=== PATIENT | female | born 1990 | race Caucasian/White ===

== ENCOUNTER 2022-07-15 16:49 | Emergency (ER) | payer OTHER, MEDICAID ==
[2022-07-15 17:05] VITALS: O2SAT 98
--- NOTE | 2022-07-15 17:11 | ERPHSYRPT ---
- History of Present Illness Time Seen by Provider: 07/15/22 17:11 Source: patient Exam Limitations: no limitations Physician History: This is a 31-year-old white female who works in the lab here at the hospital but presents to the emergency department with exposure of her left eye to urine that tested positive for chlamydia. She was not stuck with a needle and has no blood exposure. She denies visual changes. She became concerned only when the results of the urine came back positive for chlamydia. Patient has no known drug allergies. Nothing else is known about the patients medical history or infectious status. Timing/Duration: today Severity: mild Associated Symptoms: denies symptoms Allergies/Adverse Reactions: No Known Drug Allergies Allergy (Unverified 07/15/22 17:06) Home Medications: Medroxyprogesterone Acetate [Depo-Subq Provera 104] 104 mg SQ UD 07/15/22 [History] Travel Risk - International Travel Have you traveled outside of the country in past 3 weeks: No - Coronavirus Screening Are you exhibiting any of the following symptoms?: No Close contact with a COVID-19 positive Pt in past 14-21 Days: No - Review of Systems Constitutional: No Symptoms Eyes: No Symptoms Ears, Nose, & Throat: No Symptoms Respiratory: No Symptoms Cardiac: No Symptoms Abdominal/Gastrointestinal: No Symptoms Genitourinary Symptoms: No Symptoms Musculoskeletal: No Symptoms Skin: No Symptoms Neurological: No Symptoms Psychological: No Symptoms Endocrine: No Symptoms Hematologic/Lymphatic: No Symptoms Immunological/Allergic: No Symptoms All Other Systems: Reviewed and Negative - Past Medical History Pertinent Past Medical History: No - Past Surgical History Past Surgical History: Yes Musculoskeletal: Other Other Surgical History: bunion - Social History Drug Use: none - Nursing Vital Signs Nursing Vital Signs: Initial Vital Signs Temperature 97.0 F 07/15/22 17:04 Pulse Rate 89 07/15/22 17:04 Respiratory Rate 18 07/15/22 17:04 Blood Pressure 138/74 07/15/22 17:04 O2 Sat by Pulse Oximetry 98 07/15/22 17:04 Pain Scale Pain Intensity 0 - Physical Exam General Appearance: no apparent distress, alert, anxiety Eye Exam: PERRL/EOMI, eyes nml inspection Ears, Nose, Throat Exam: normal ENT inspection, moist mucous membranes Neck Exam: normal inspection, non-tender, supple, full range of motion Respiratory Exam: airway intact, No chest tenderness, No respiratory distress Gastrointestinal/Abdomen Exam: No tenderness Pelvic Exam: not done Rectal Exam: not done Back Exam: normal inspection, normal range of motion, No CVA tenderness, No vertebral tenderness Extremity Exam: normal inspection, normal range of motion, pelvis stable Neurologic Exam: alert, oriented x 3, cooperative, 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, normal mood/affect, nml cerebellar function, nml station & gait, sensation nml Skin Exam: normal color, warm, dry Lymphatic Exam: No adenopathy SpO2 Interpretation: normal SpO2: 98 O2 Delivery: Room Air - Course Nursing assessment & vital signs reviewed: Yes Ordered Tests: Active Orders 24 hr Category Date Time Status HCG QUALITATIVE,SERUM Stat Lab 07/15/22 16:10 Completed Lab/Rad Data: Laboratory Results 07/15/22 Range/Units 16:10 Serum , Qual NEGATIVE (Negative) - Progress Progress: unchanged Progress Note: 07/15/22 18:40 Medical decision making: This patient was exposed to urine in her eye at the lab tested positive for chlamydia. Nothing else is known about the patient or the patient's infectious status. I think it is reasonable to test this patient for hepatitis and HIV as there was exposure to the membrane of the eye. This is to protect this patient for any future infectious issue medical coverage. I think the risk is very low but cannot say that the risk is 0. The patient agrees. We will check her status and start her on doxycycline for 2 weeks. She can follow-up with her primary care physician for further evaluation and management. Counseled pt/family regarding: lab results, diagnosis, need for follow-up - Departure Departure Disposition: Home Clinical Impression: Chlamydia contact Condition: Stable Critical Care Time: No Referrals[facility] [Primary Care Provider] - Follow up/PCP as directed Additional Instructions: Continue rinsing your eye out 2-3 times a day for the next 24 to 48 hours. Take your medication as prescribed. Follow-up with your primary care physician for further evaluation management. Prescriptions: Doxycycline Hyclate 100 mg [Vibramycin 100 MG] 100 mg PO BID #28 tab
[2022-07-15] MEDS ORDERED: Vibramycin 100 MG PO ONE (18:58)
[2022-07-15] MEDS ORDERED: Vibramycin 100 MG ONE (19:01)
[2022-07-15 19:10] VITALS: BP 139/68; PULSE 80
[2022-07-17 10:30] LABS: HBsAg Screen Negative (Negative); HIV Screen 4th Generation wRfx Non Reactive (Non Reactive); Hep B Surface Ab, Quant 332.9 mIU/mL (Immunity>9.9); Hep C Virus Ab <0.1 s/co ratio (0.0-0.9)
== END 2022-07-15 19:13 | disposition home or self-care (01) ==
LOC: ED 16:49
DX: Z20.828 Contact with and (suspected) exposure to other viral communicable diseases (principal)
CPT/HCPCS: 36415; 84703; 86317; 86803; 87340; 87389; 99281; A9270-GY; G0472